=== PATIENT | female | born 1985 | race Caucasian/White ===

== ENCOUNTER 2018-03-03 10:45 | Emergency (ER) | payer SELFPAY ==
[2013-12-01 15:24] VITALS: BP 135/90
--- NOTE | 2018-03-03 11:47 | Diagnostic Imaging Report ---
GENOVEVA OROSCO [facility] [address] [address] [address] [place], [place]. [address] Report Submission Date: Mar 03, 2018 11:41:45 AM TELLER Patient Study Name: MAO JOHNSON Date: Mar 03, 2018 11:19:04 AM TELLER Modality Type: DX Gender: F Description: CHEST : 83 Institution: [facility] Physician: GENOVEVA OROSCO Chest two views History: Shortness of breath and cough Findings: The lungs are moderately hyperinflated. A calcified right middle lobe granuloma is present. There is no infiltrate, pleural effusion, or pneumothorax. Heart size is normal. Osseous structures are intact. Impression: Hyperinflation. Electronically signed on Mar 03, 2018 11:41:45 AM TELLER by: Jeremy BRUNER
[2018-03-04 07:58] LABS: eGFR (Non-African) > 60
[2018-03-04 07:59] LABS: BASOPHILS % 0.6 (0.0-1.5); EOSINOPHILS % 7.7 % (0.0-6.8); MEAN CORPUSCULAR HEMOGLOBIN 28.5 pg (28.0-34.0); MONOCYTES % 8.6 % (0.0-11.0); NEUTROPHILS # 2.7 # k/uL (1.4-7.7)
== END 2018-03-03 12:30 | disposition home or self-care (01) ==
LOC: ED 10:45
DX: T27.7XXA Corrosion of respiratory tract, part unspecified, initial encounter (principal); Y93.9 Activity, unspecified; Y92.79 Other farm location as the place of occurrence of the external cause
CPT/HCPCS: 36415; 71046; 80053; 85025; 94640; 96374; 99283; 99284; J2930; S1016